=== PATIENT | female | born 1960 | race Caucasian/White ===

== ENCOUNTER → 2016-11-10 | Outpatient (CLI) | payer OTHER ==
[~2016-11-10] MED LIST: HYDROCODONE/APAP 5/325 TAB ONE; IOPAMIDOL (ISOVUE-300) 50 ML VIAL IV ONE; LIDOCAINE 2% 5 ML SDV ONE; LIDOCAINE 2% JELLY 5 ML TUBE ONE; PROPOFOL 200 MG/20 ML VIAL ONE; PROPOFOL/EMULSION 500 MG/50 ML BOTTLE IV ONE; ROCURONIUM 50 MG/5 ML VIAL ONE; SUGAMMADEX SODIUM 200 MG/2 ML VIAL IVP ONE; fentaNYL 100 MCG/2 ML INJ ONE; fentaNYL 250 MCG/5 ML INJ ONE
[2016-11-10 13:21] LABS: CREATININE 0.8 mg/dL (0.6-1.0); GLOMERULAR FILTRATION RATE > 60
--- NOTE | 2016-11-10 19:03 | CT ---
CT Parathyroid scan of the Neck without and with Contrast 4 D imaging 1337 hours History: Hyperparathyroid. Evaluate for parathyroid adenoma. Technique: Spiral imaging was obtained from the base of skull to the lung apices precontrast followe d by postcontrast spiral imaging from the level of these clivus to the aortic arch during arterial an d venous phase imaging. Postcontrast imaging was obtained with the administration of 75 mL Isovue-300 IV contrast. Images were constructed in multiple planes. Dose reduction techniques were utilized. No prior imaging is available for comparison. Findings: There is no obvious classic enhancing parathyroid adenoma during arterial phase identified with attention to the posterior tissues of the thyroid gland. There is posterior lobulated extension off the mid to upper left lobe of the thyroid that extends to the paraesophageal position, however, t his tissue enhances similar to the remaining thyroid allowing for some artifact from the shoulders. Along the posterior aspect lower pole left lobe of thyroid there is subtle lobulated contour the aline ures about 4 x 6 mm centered around series 6, image 93, however, the degree of enhancement is only ju st slightly higher than the remaining thyroid gland. There is a small indeterminate nodule in the right paraesophageal location at the level of the lower margin of the right lobe of the thyroid that does demonstrate relatively increased enhancement during arterial phase. This is the most likely candidate for possible parathyroid adenoma seen on series 6 image 101 measures only about 6 x 3 mm. During arterial phase, this nodule measures Hounsfield unit o f 130 where as the thyroid enhancement is 107. However, just caudal to this are 3 to 4 right paratrac heal small nodes that do not demonstrate significant enhancement but are in a similar position. Normal-appearing subcentimeter lymph nodes are seen within the soft tissues on each side of the neck. No significant lymphadenopathy is appreciated. The parapharyngeal soft tissues are symmetric without evidence of mass. The vallecula and piriform sinuses also appear to be normal. The soft palate has a normal contour. The parotid and submandibular glands are normal in appearance. The musculature withi n the neck is symmetric. There is normal enhancement of the vasculature. There is no evidence of unde rlying stenosis involving the carotid system. There is moderate intervertebral disk space narrowing with associated disk bulge and spinal stenosis suspected at C5-C6 and at C6-C7 bilateral neural fora lesa stenosis is also noted at C5-C6. Impression: 1. No definitive dominant parathyroid adenoma identified. Most likely candidate for parathyroid adeno ma would be a right paraesophageal nodule measuring 6 x 3 mm at the level of the lower margin right l obe of the thyroid as detailed above. 2. Moderate degenerative disk disease at C5-C6 and at C6-C7 with associated spinal and neuroforaminal stenoses.
== END ==
LOC: FIMAGING 11:59
PROVIDERS: ATTEND Otolaryngology
DX: E21.0 Primary hyperparathyroidism (principal); M50.322 Other cervical disc degeneration at C5-C6 level; M48.02 Spinal stenosis, cervical region
CPT/HCPCS: J2704; J3010; Q9967

== ENCOUNTER 2016-11-11 06:06 | Observation (INO) | payer OTHER ==
[2016-11-10 14:34] LABS: % IMMATURE GRANULYOCYTES 0.4 % (0.0-1.1); ABSOLUTE IMMATURE GRANULOCYTES 0.02 10^3/uL (0.00-0.10); ADD DIFF? NO; ADD MORPH? NO; ADD SCAN? NO; ATYPICAL LYMPHOCYTE FLAG 20 (0-99); FRAGMENT RBC FLAG 0 (0-99); HEMATOCRIT 41.5 % (38.0-47.0); HEMOGLOBIN 13.9 g/dL (12.6-16.3); LEFT SHIFT FLG 0 (0-99); LIPEMIA HEMOLYSIS FLAG 80 (0-99); MEAN CELL HEMOGLOBIN 32.1 pg (27.9-34.1); MEAN CELL HEMOGLOBIN CONCENTR. 33.5 g/dL (32.4-36.7); MEAN CELL VOLUME 95.8 fL (81.5-99.8); MEAN PLATELET VOLUME 9.3 fL (8.7-11.7); PLATELET CLUMPS FLAG 0 (0-99); PLATELET COUNT 309 10^3/uL (150-400); RED BLOOD CELL COUNT 4.33 10^6/uL (4.18-5.33); RED CELL DISTRIBUTION WIDTH 13.4 % (11.5-15.2)
[2016-11-10 14:50] LABS: ANION GAP 12 mEq/L (8-16); CARBON DIOXIDE 27 mEq/l (22-31); CHLORIDE 105 mEq/L (97-110); CREATININE 0.8 mg/dL (0.6-1.0); GLOMERULAR FILTRATION RATE > 60; GLUCOSE 98 mg/dL (70-100); POTASSIUM 4.3 mEq/L (3.5-5.2); SODIUM 144 mEq/L (134-144)
[2016-11-11] MEDS ORDERED: LIDOCAINE 1% 5 ML SDV ID PRN (06:21)
[2016-11-11] MEDS ORDERED: LR 1,000 ML IV ONE (06:21)
[2016-11-11] MEDS ORDERED: LIDOCAINE 1% 5 ML SDV ONE (06:36)
[2016-11-11] MEDS ORDERED: LIDO/EPI 1% **Not for Epidural 20 ML MDV ONE (06:58)
--- NOTE | 2016-11-11 06:59 | CPEKG ---
Heart Rate: 63 RR Interval: 952 P-R Interval: 164 QRSD Interval: 86 QT Interval: 408 QTC Interval: 418 P [place]: 62 QRS [place]: -32 T Wave [place]: 9 EKG Severity - BORDERLINE ECG - EKG Impression: SINUS RHYTHM EKG Impression: LEFT AXIS DEVIATION EKG Impression: LOW VOLTAGE THROUGHOUT EKG Impression: Non-specific T wave abnormalities anterior leads. Electronically Signed By: Reginald Ferrell 11-Nov-2016 17:03:50
[2016-11-11] MEDS ORDERED: SCOPOLAMINE HYDROBROMIDE 1.5 MG PATCH TD ONE ×2 (07:08→07:13)
[2016-11-11 07:09] LABS: INR 1.09 (0.83-1.16)
[2016-11-11] MEDS ORDERED: MIDAZOLAM 2 MG/2 ML VIAL ONE (07:10)
[2016-11-11] MEDS ORDERED: CITRIC ACID/SODIUM CITRATE 30 ML UDCUP ONE (07:13)
[2016-11-11] MEDS ORDERED: ONDANSETRON 4 MG/2 ML VIAL IVP PRN (07:20)
[2016-11-11] MEDS ORDERED: ceFAZolin 2 GM/DEXTROSE 100 ML IV ONE (07:30)
[2016-11-11] MEDS ORDERED: D5W 1/2 NS W/ 20 KCl/L 1,000 ML IV SCH (07:30)
[2016-11-11 08:13] LABS: IONIZED CALCIUM 1.26 MMOL/L (1.12-1.30)
[2016-11-11 08:14] LABS: ABG FOR OR YES
[2016-11-11] MEDS ORDERED: ENOXAPARIN 30 MG/0.3 ML SYR SC SCH (09:00)
[2016-11-11] MEDS ORDERED: fentaNYL 100 MCG/2 ML INJ ONE ×2 (10:29→11:02)
[2016-11-11] MEDS ORDERED: HYDROmorphONE/DILAUDID 1 MG/ML SYR ONE ×2 (10:41→11:02)
--- NOTE | 2016-11-11 13:06 | GOP ---
[f rep st] OPERATIVE REPORT DATE OF OPERATION: 11/11/2016 SURGEON: Say Dawson MD PROFESSOR OF COUNSELING: Dr. Shimon Rodriguez. ANESTHESIA: General endotracheal. PREOPERATIVE DIAGNOSIS: Hyperparathyroidism. POSTOPERATIVE DIAGNOSIS: Hyperparathyroidism. PROCEDURE PERFORMED: Parathyroidectomy. FINDINGS: Markedly hypertrophic right inferior parathyroid and left superior parathyroid with grossly normal right superior parathyroid. Intraoperative PTH decreased from 188 to 67. ESTIMATED BLOOD LOSS: 30 mL. DESCRIPTION OF PROCEDURE: The patient was placed on the operating table in the supine position. After the induction of general endotracheal anesthesia, a sterile prep and drape of the anterior neck was performed. Just prior to this, an intraoperative parathyroid level was obtained which was 188. The neck was examined and the incision planned and created in a natural occurring skin crease just superior to the sternal notch. The incision was carried down through the subcutaneous tissues and then flaps were elevated superiorly and inferiorly in the subplatysmal plane widely exposing the thyroid region. Once the thyroid region had been exposed, the vertical midline of the neck was identified. The strap muscles were divided in the vertical midline and retracted laterally. Initially attention was directed to the right side of the neck. As dissection proceeded along posterior aspect of the inferior pole of the right thyroid lobe, a moderately enlarged parathyroid gland was identified. Dissection then proceeded further cephalad. The inferior parathyroid gland was sent for frozen section evaluation. It revealed a 112 mg parathyroid without evidence of adenoma, grossly hypercellular. Intraoperative parathormone sampling was done 10 minutes following removal of the parathyroid gland and the parathormone level had dropped to 127. Further dissection was performed along the area of the superior pole and the superior parathyroid was encountered. It was noted to be normal in appearance.. A portion of this was sent for frozen section analysis, which revealed normal parathyroid tissue. Attention was then directed to the left side of the neck. Dissection along the inferior aspect of the thyroid was performed. Two parathyroid candidates were encountered. These were sent for frozen section evaluation and found to be consistent with lymph nodes. Further cephalad dissection was performed in the region of the superior parathyroid. A markedly enlarged parathyroid gland was identified .A portion of this gland was sent for frozen section evaluation. This frozen section revealed a 94 mg parathyroid portion with the characteristics of hyperplasia. Intraoperative PTH had been obtained approximately 35 minutes following removal of the initial hypoplastic gland and this has dropped to 67 from a preoperative level of 188. It was felt that since the superior gland had evidence of hyperplasia, this should be removed in toto leaving the normal right superior parathyroid and presumably normal left inferior parathyroid. At this point, hemostasis was obtained throughout the wound by the use of bipolar electrocautery. The strap muscles were reapproximated in the vertical midline utilizing 3-0 Vicryl sutures. A 10- Irish drain had been placed deeply into the wound and sutured into place with a 2-0 silk suture. A deep layer closure of the wound was performed utilizing interrupted 3-0 Vicryl sutures. The skin was closed with interrupted 5-0 Prolene sutures. At this point, the neck wound was cleansed. A sterile neck wrap was placed circumferentially. The patient was awakened and transferred to the post-anesthesia recovery room in stable condition in stable condition. FLUID REPLACEMENT: 1000 mL. COMPLICATIONS: None. /[id number]/MODL MTDD
[2016-11-11] MEDS: DEXAMETHASONE 4 MG/ML VIAL IVP SCH ×2 (13:21→21:25)
[2016-11-11 15:26] LABS: IONIZED CALCIUM 1.28 MMOL/L (1.12-1.30)
--- NOTE | 2016-11-11 17:10 | SOAPPROG ---
SOAP Progress Note Assessment/Plan: pt s/p total thyroid. Doing well. No numbness or hoarseness. Neck- compression dressing in place. Plan: Pt seen by Dr. ramos. Calcium was 1.28. Plan for discharge tomorrow if Ca stable. 11/11/16 17:07 Objective: Vital Signs Temp Pulse Resp BP Pulse Ox 36.6 C 80 16 114/75 91 L 11/11/16 15:58 11/11/16 15:58 11/11/16 15:58 11/11/16 15:58 11/11/16 15:58 Laboratory Results 11/10/16 14:20 11/10/16 14:20 11/10/16 11/11/16 11/12/16 05:59 05:59 05:59 Intake Total 1900 Output Total 50 Balance 1850 PT 14.0 SEC (12.0-15.0) 11/11/16 06:45 INR 1.09 (0.83-1.16) 11/11/16 06:45 ICD10 Worksheet Patient Problems: Problems Problem Status Diagnosed Thyroid cancer Acute - ICD10 Problem Qualifiers (1) Thyroid cancer
[2016-11-11] MEDS: OXYCODONE/APAP 5/325 TAB PO PRN ×2 (17:22→21:26)
[2016-11-11] MEDS ORDERED: WARFARIN SODIUM 5 MG TAB PO ONE (20:00)
[2016-11-12 04:29] VITALS: RESP 16
[2016-11-12 04:29] LABS: IONIZED CALCIUM 1.33 MMOL/L (1.12-1.30)
[2016-11-12] MEDS: OXYCODONE/APAP 5/325 TAB PO PRN ×2 (04:36→09:02)
[2016-11-12] MEDS: DEXAMETHASONE 4 MG/ML VIAL IVP SCH (04:37)
[2016-11-12 07:19] VITALS: BP 112/71; PULSE 72; TEMP 98.3; O2SAT 90
[2016-11-12] MEDS ORDERED: BACITRACIN OINTMENT 1 PACKET TP ONE (07:33)
--- NOTE | 2016-11-12 08:24 | SOAPPROG ---
SOAP Progress Note Assessment/Plan: Assessment: POD 1 s/p parathyroidectomy. Doing well. Drain output 20mL. Calcium 1.33. Drain removed, dressing changed. - Discharge home this AM - She will resume coumadin at home - She will call to schedule follow-up for suture removal next week 11/12/16 08:22 Subjective: POD 1 s/p parathyroidectomy. Doing well. Pain controlled. Objective: Vital Signs Temp Pulse Resp BP Pulse Ox 36.8 C 72 16 112/71 90 L 11/12/16 07:18 11/12/16 07:18 11/12/16 07:18 11/12/16 07:18 11/12/16 07:18 Laboratory Results 11/10/16 14:20 11/10/16 14:20 11/11/16 11/12/16 11/13/16 05:59 05:59 05:59 Intake Total 2850 Output Total 770 Balance 2080 PT 14.0 SEC (12.0-15.0) 11/11/16 06:45 INR 1.09 (0.83-1.16) 11/11/16 06:45 Voice strong, no stridor Drain output 20mL - drain removed Neck flat, incision clean Dressing replaced ICD10 Worksheet Patient Problems: Problems Problem Status Diagnosed Thyroid cancer Acute
[2016-11-12] MEDS ORDERED: ENOXAPARIN 40 MG/0.4 ML SYR SC SCH ×2 (09:00→14:00)
== END 2016-11-12 09:19 | disposition home or self-care (01) ==
LOC: F3E 06:06
PROVIDERS: ADMIT Otolaryngology; ATTEND Otolaryngology
PROC: 0GBR0ZX Excision of Parathyroid Gland, Open Approach, Diagnostic (ICD-10-PCS; principal; 2016-11-11 07:15)
DX: E21.3 Hyperparathyroidism, unspecified (principal); E03.9 Hypothyroidism, unspecified; E11.9 Type 2 diabetes mellitus without complications; M32.9 Systemic lupus erythematosus, unspecified; M06.9 Rheumatoid arthritis, unspecified; I27.2 Other secondary pulmonary hypertension; K21.9 Gastro-esophageal reflux disease without esophagitis; K58.9 Irritable bowel syndrome, unspecified; D68.61 Antiphospholipid syndrome; Z86.73 Personal history of transient ischemic attack (TIA), and cerebral infarction without residual deficits; Z86.718 Personal history of other venous thrombosis and embolism; Z79.01 Long term (current) use of anticoagulants; Z88.2 Allergy status to sulfonamides
CPT/HCPCS: G0378; J0690; J1100; J1170; J1650; J2250; J3010